=== PATIENT | male | born 1940 | race Caucasian/White ===

== ENCOUNTER 2018-08-23 18:08 | Inpatient (IN) | payer MEDICARE, OTHER ==
[~2018-08-23] VITALS: Ht 177.8 cm; Wt 104.3 kg
--- OUTSIDE RECORDS SUMMARY | 2018-08-23 18:11 | XMS REPORT ---
Author Author [facility] Address Unknown Phone Unavailable Care Team Providers Care Public Policy Mediator Name Role Phone Unavailable Unavailable Payers Payer Name Policy Type Policy Number Effective Date Expiration Date Problems This patient has no known problems. Allergies, Adverse Reactions, Alerts Allergy Name Allergy Type Status Severity Reaction(s) Onset Date Inactive Date Treating Clinician Comments No Known Allergies DA Active U 2018-06-25 00:00:00 No Allergy Information Available DA Active U 2018-06-24 00:00:00 No Allergy Information Available DA Active U 2015-11-03 00:00:00 Medications This patient has no known medications. Results Test Description Test Time Test Comments Text Results Atomic Results Result Comments GLUBED 2018-06-27 13:27:00 GLUBED (test code=GLUBED) 189 mg/dL 74-106 Performed by certified dx board operator at [facility] [id number] 06:29:00* Test Item Value Reference Range Comments GLUBED (test code=GLUBED) 177 mg/dL 74-106 Performed by certified dx board operator at [facility] BASIC METABOLIC [id number] 05:42:00* Test Item Value Reference Range Comments SODIUM (test code=NA) 138 mmol/L 136-145 POTASSIUM (test code=K) 4.0 mmol/L 3.5-5.1 CHLORIDE (test code=CL) 108.0 mmol/L 98-107 CARBON DIOXIDE (test code=CO2) 22.0 mmol/L 21-32 ANION GAP (test code=GAP) 12.0 10-20 GLUCOSE (test code=GLU) 161 mg/dL 74-106 BLOOD UREA NITROGEN (test code=BUN) 20 mg/dL 7-18 GLOMERULAR FILTRATION RATE (test code=GFR) 49 mL/min >=60 Estimated GFR by using Modified MDRD formula.Chronic kidney disease is defined as either kidney damageor GFR <60 mL/min/1.73 m2 for >3 months. CREATININE (test code=CREAT) 1.40 mg/dL 0.7-1.3 BUN/CREATININE RATIO (test code=BUN/CREA) 14.3 10-20 CALCIUM (test code=CA) 9.1 mg/dL 8.5-10.1 CBC W/AUTO [id number] 05:16:00* Test Item Value Reference Range Comments WHITE BLOOD CELL (test code=WBC) 10.9 K/mm3 4.5-12.5 RED BLOOD CELL (test code=RBC) 4.16 mill/mm3 4.0-5.8 HEMOGLOBIN (test code=HGB) 12.4 gram/dL 13.0-17.5 HEMATOCRIT (test code=HCT) 37.4 % 42.0-52.0 MEAN CELL VOLUME (test code=MCV) 89.9 fL 80-98 MEAN CELL HGB (test code=MCH) 29.8 picogram 27.0-33.0 MEAN CELL HGB CONCETRATION (test code=MCHC) 33.2 gram/dL 33.0-36.0 RED CELL DISTRIBUTION WIDTH (test code=RDW) 13.1 % 11.6-16.2 RED CELL DISTRIBUTION WIDTH SD (test code=RDW-SD) 43.2 fL 37.0-51.0 PLATELET COUNT (test code=PLT) 299 K/mm3 150-450 MEAN PLATELET VOLUME (test code=MPV) 10.5 fL 6.7-11.0 NEUTROPHIL % (test code=NT%) 58.3 % 39.0-69.0 IMMATURE GRANULOCYTE % (test code=IG%) 0.4 % 0.0-5.0 LYMPHOCYTE % (test code=LY%) 25.5 % 25.0-55.0 MONOCYTE % (test code=MO%) 9.9 % 0.0-10.0 EOSINOPHIL % (test code=EO%) 5.4 % 0.0-5.0 BASOPHIL % (test code=BA%) 0.5 % 0.0-1.0 NUCLEATED RBC % (test code=NRBC%) 0.0 % 0-0 NEUTROPHIL # (test code=NT#) 6.38 K/mm3 1.8-7.7 IMMATURE GRANULOCYTE # (test code=IG#) 0.04 x10 3/uL 0-0.03 LYMPHOCYTE # (test code=LY#) 2.79 K/mm3 1.0-5.0 MONOCYTE # (test code=MO#) 1.08 K/mm3 0-0.8 EOSINOPHIL # (test code=EO#) 0.59 K/mm3 0.0-0.5 BASOPHIL # (test code=BA#) 0.05 K/mm3 0.0-0.2 NUCLEATED RBC # (test code=NRBC#) 0.00 K/mm3 0.0-0.1 MANUAL DIFF REQUIRED (test code=MDIFF) NO [id number] 20:25:00* Test Item Value Reference Range Comments GLUBED (test code=GLUBED) 201 mg/dL 74-106 Performed by certified dx board operator at [facility] [id number] 15:56:00* Test Item Value Reference Range Comments GLUBED (test code=GLUBED) 197 mg/dL 74-106 Performed by certified dx board operator at [facility] - XR CHEST 1 [id number] 11:50:00 FAX: Aissatou Foote MD [phone] [place]: B St: ADM Name: NATALIYA POTTER [facility] : [birth year] Age/S: 78/M [address] [facility] #: [id number] Loc: 4 [place] [address] Phys: Aissatou Cross MD Acct: [id number] Dis Date: Status: ADM IN PHONE #: [phone] Exam Date: 06/26/2018 1147 FAX #: [phone] Reason: pacer EXAMS: CPT CODE: [id number] XR CHEST 1 V 59887 HISTORY: Pacemaker placement. COMPARISON: June 25, 2018. No acute infiltrates, effusion or congestion is noted. Left ICD is new with the leads in the right atrium and right ventricle. No pneumothorax. Cardiomegaly. IMPRESSION: Left ICD with the leads in the right atr ium and right ventricle without pneumothorax. No acute infiltrates, effusion or congestion. at 1150 Reported and signed b y: Buzz Suero M.D. CC: Aissatou Cross MD Technologist: BRIANDA RUBI, RT(R) Trnscrd Date/Time/By: 06/26/2018 (8872) : By: [email or web address] Orig Print D/T: S: 06/26/2018 (9985) PAGE 1 Signed Report [id number] 11:46:00 * Test Item Value Reference Range Comments GLUBED (test code=GLUBED) 143 mg/dL 74-106 Performed by certified dx board operator at [facility] BASIC METABOLIC [id number] 08:07:00* Test Item Value Reference Range Comments SODIUM (test code=NA) 140 mmol/L 136-145 POTASSIUM (test code=K) 4.1 mmol/L 3.5-5.1 CHLORIDE (test code=CL) 111.0 mmol/L 98-107 CARBON DIOXIDE (test code=CO2) 22.0 mmol/L 21-32 ANION GAP (test code=GAP) 11.1 10-20 GLUCOSE (test code=GLU) 139 mg/dL 74-106 BLOOD UREA NITROGEN (test code=BUN) 24 mg/dL 7-18 GLOMERULAR FILTRATION RATE (test code=GFR) 45 mL/min >=60 Estimated GFR by using Modified MDRD formula.Chronic kidney disease is defined as either kidney damageor GFR <60 mL/min/1.73 m2 for >3 months. CREATININE (test code=CREAT) 1.50 mg/dL 0.7-1.3 BUN/CREATININE RATIO (test code=BUN/CREA) 16.0 10-20 CALCIUM (test code=CA) 9.0 mg/dL 8.5-10.1 SERUM [id number] 08:07:00* Test Item Value Reference Range Comments SERUM IRON (test code=IRON) 59 ug/dL 50-175 VITAMIN [id number] 08:07:00* Test Item Value Reference Range Comments VITAMIN B12 (test code=VITB12) 622 pg/mL 193-986 FOLIC [id number] 08:07:00* Test Item Value Reference Range Comments FOLIC ACID (test code=FOL) 41.3 ng/mL 3.10-17.50 BASIC METABOLIC [id number] 07:35:00* Test Item Value Reference Range Comments SODIUM (test code=NA) 140 mmol/L 136-145 POTASSIUM (test code=K) 4.1 mmol/L 3.5-5.1 CHLORIDE (test code=CL) 111.0 mmol/L 98-107 CARBON DIOXIDE (test code=CO2) 22.0 mmol/L 21-32 ANION GAP (test code=GAP) 11.1 10-20 GLUCOSE (test code=GLU) 139 mg/dL 74-106 BLOOD UREA NITROGEN (test code=BUN) 24 mg/dL 7-18 GLOMERULAR FILTRATION RATE (test code=GFR) 45 mL/min >=60 Estimated GFR by using Modified MDRD formula.Chronic kidney disease is defined as either kidney damageor GFR <60 mL/min/1.73 m2 for >3 months. CREATININE (test code=CREAT) 1.50 mg/dL 0.7-1.3 BUN/CREATININE RATIO (test code=BUN/CREA) 16.0 10-20 CALCIUM (test code=CA) 9.0 mg/dL 8.5-10.1 SERUM [id number] 07:35:00* Test Item Value Reference Range Comments SERUM IRON (test code=IRON) 59 ug/dL 50-175 VITAMIN [id number] 07:35:00* Test Item Value Reference Range Comments VITAMIN B12 (test code=VITB12) pg/mL 193-986 FOLIC [id number] 07:35:00* Test Item Value Reference Range Comments FOLIC ACID (test code=FOL) 41.3 ng/mL 3.10-17.50 CBC W/AUTO [id number] 06:37:00* Test Item Value Reference Range Comments WHITE BLOOD CELL (test code=WBC) 11.4 K/mm3 4.5-12.5 RED BLOOD CELL (test code=RBC) 4.14 mill/mm3 4.0-5.8 HEMOGLOBIN (test code=HGB) 12.2 gram/dL 13.0-17.5 HEMATOCRIT (test code=HCT) 37.7 % 42.0-52.0 MEAN CELL VOLUME (test code=MCV) 91.1 fL 80-98 MEAN CELL HGB (test code=MCH) 29.5 picogram 27.0-33.0 MEAN CELL HGB CONCETRATION (test code=MCHC) 32.4 gram/dL 33.0-36.0 RED CELL DISTRIBUTION WIDTH (test code=RDW) 13.3 % 11.6-16.2 RED CELL DISTRIBUTION WIDTH SD (test code=RDW-SD) 44.1 fL 37.0-51.0 PLATELET COUNT (test code=PLT) 313 K/mm3 150-450 MEAN PLATELET VOLUME (test code=MPV) 10.9 fL 6.7-11.0 NEUTROPHIL % (test code=NT%) 45.7 % 39.0-69.0 IMMATURE GRANULOCYTE % (test code=IG%) 0.5 % 0.0-5.0 LYMPHOCYTE % (test code=LY%) 35.1 % 25.0-55.0 MONOCYTE % (test code=MO%) 10.8 % 0.0-10.0 EOSINOPHIL % (test code=EO%) 7.4 % 0.0-5.0 BASOPHIL % (test code=BA%) 0.5 % 0.0-1.0 NUCLEATED RBC % (test code=NRBC%) 0.0 % 0-0 NEUTROPHIL # (test code=NT#) 5.21 K/mm3 1.8-7.7 IMMATURE GRANULOCYTE # (test code=IG#) 0.06 x10 3/uL 0-0.03 LYMPHOCYTE # (test code=LY#) 4.00 K/mm3 1.0-5.0 MONOCYTE # (test code=MO#) 1.23 K/mm3 0-0.8 EOSINOPHIL # (test code=EO#) 0.84 K/mm3 0.0-0.5 BASOPHIL # (test code=BA#) 0.06 K/mm3 0.0-0.2 NUCLEATED RBC # (test code=NRBC#) 0.00 K/mm3 0.0-0.1 MANUAL DIFF REQUIRED (test code=MDIFF) NO RETICULOCYTE [id number] 06:37:00* Test Item Value Reference Range Comments RETICULOCYTE COUNT (test code=RETICT) 2.1 % 0.5-2.0 RETIC COUNT ABSOLUTE (test code=RET#) 0.089 mill/mm3 0.016-0.095 IMMATURE RETICULOCYTE FRACTION (test code=IRF) 11.4 % 2.3-13.4 Values above normal range indicate an increase in RBCcellular response from bone marrow. RETICULOCYTE HGB EQUIVALENT (test code=RETHE) 34.9 pg 28.2-35.7 RET-He is a direct estimate of recent functionalavailability of iron in the cell, therefore, decreasedRET-He is indicative of iron deficiency. BASIC METABOLIC [id number] 06:36:00* Test Item Value Reference Range Comments SODIUM (test code=NA) 140 mmol/L 136-145 POTASSIUM (test code=K) 4.1 mmol/L 3.5-5.1 CHLORIDE (test code=CL) 111.0 mmol/L 98-107 CARBON DIOXIDE (test code=CO2) mmol/L 21-32 ANION GAP (test code=GAP) 10-20 GLUCOSE (test code=GLU) mg/dL 74-106 BLOOD UREA NITROGEN (test code=BUN) mg/dL 7-18 GLOMERULAR FILTRATION RATE (test code=GFR) mL/min >=60 CREATININE (test code=CREAT) mg/dL 0.7-1.3 BUN/CREATININE RATIO (test code=BUN/CREA) 10-20 CALCIUM (test code=CA) mg/dL 8.5-10.1 SERUM [id number] 06:36:00* Test Item Value Reference Range Comments SERUM IRON (test code=IRON) ug/dL 50-175 VITAMIN [id number] 06:36:00* Test Item Value Reference Range Comments VITAMIN B12 (test code=VITB12) pg/mL 193-986 FOLIC [id number] 06:36:00* Test Item Value Reference Range Comments FOLIC ACID (test code=FOL) ng/mL 3.10-17.50 [id number] 05:35:00* Test Item Value Reference Range Comments GLUBED (test code=GLUBED) 144 mg/dL 74-106 Performed by certified dx board operator at [facility] [id number] 20:45:00* Test Item Value Reference Range Comments GLUBED (test code=GLUBED) 150 mg/dL 74-106 Performed by certified dx board operator at [facility] [id number] 15:48:00* Test Item Value Reference Range Comments GLUBED (test code=GLUBED) 156 mg/dL 74-106 Performed by certified dx board operator at [facility] [id number] 12:03:00* Test Item Value Reference Range Comments GLUBED (test code=GLUBED) 100 mg/dL 74-106 Performed by certified dx board operator at [facility] - XR CHEST 1 [id number] 09:41:00 FAX: Aissatou Foote MD [phone] [place]: St: ADM Name: NATALIYA POTTER [facility] : [birth year] Age/S: 78/M [address] [facility] Unit #: [id number] Loc: V.[address] [place] [address] Phys: Aissatou Cross MD Acct: [id number] Dis Date: Status: ADM IN PHONE #: [phone] Exam Date: 06/25/2018826 FAX #: [phone] Reason: COUGH/CHEST DISCOMFORT EXAMS: CPT CODE: [id number] XR CHEST 1 V 64372 HISTORY: Cough and chest discomfort. COMPARISON: None available. No acute infiltrates, effusion or congestion is noted. Cardiomegaly. I MPRESSION: No acute infiltrates, effusion or congestion. at 0941 Reported and signed by: Buzz Suero M.D. CC: Aissatou Cross MD Technologist: Nakita Carias RT(R); PARVEZ SHANNON JR Trnscrd Date/Time/By: 0 06/25/2018 (0956) : By: [email or web address] Orig Print D/T: S: 06/25/2018 (3593) PAGE 1 Signed Report T3 [id number] 06:48:00* Test Item Value Reference Range Comments T3 UPTAKE (test code=T3UP) 39.0 % 30.0-40.0 DID YOU ORDER T3UP AND T4 ? NOT4 (THYROXINE)2018-06-25 06:48:00* Test Item Value Reference Range Comments T4 (THYROXINE) (test code=T4) 9.9 ug/dL 4.5-13.9 DID YOU ORDER T3UP AND T4 ? NOT7 (FREE THYROXINE INDEX)2018-06-25 06:48:00* Test Item Value Reference Range Comments T7 (FREE THYROXINE INDEX) (test code=T7) 3.86 FTI 1.3-5.1 DID YOU ORDER T3UP AND T4 ? NOTHYROID STIMULATING [id number] 06:48:00* Test Item Value Reference Range Comments THYROID STIMULATING HORMONE (test code=TSH) 1.120 uIU/mL 0.36-3.74 TSH REFERENCE RANGES: EUTHYROID: 0.35 - 4.3 mIU/mL HYPO : > 5.5 mIU/mL HYPER : < 0.35 mIU/mL DID YOU ORDER T3UP AND T4 ? NOCPK-MB [id number] 06:35:00* Test Item Value Reference Range Comments CREATINE KINASE (CK) (test code=CK) 111 IUnit/L 26-208 CKMB (test code=CKMBT) 1.8 ng/mL 0-6.0 RELATIVE % INDEX (test code=REL%) 1.62 % 0.00-2.50 "If the total CK is elevated, the CKMB Fraction must beinterpreted as a Relative % Index, Normal is less than 2.5%"NOTE: Relative % Index is not valid with a normal total CK. SPECIMEN COMMENTS: [id number] 05:38:00* Test Item Value Reference Range Comments GLUBED (test code=GLUBED) 91 mg/dL 74-106 Performed by certified dx board operator at [facility] CBC W/AUTO [id number] 00:38:00* Test Item Value Reference Range Comments WHITE BLOOD CELL (test code=WBC) 13.5 K/mm3 4.5-12.5 RED BLOOD CELL (test code=RBC) 4.09 mill/mm3 4.0-5.8 HEMOGLOBIN (test code=HGB) 12.1 gram/dL 13.0-17.5 HEMATOCRIT (test code=HCT) 38.0 % 42.0-52.0 MEAN CELL VOLUME (test code=MCV) 92.9 fL 80-98 MEAN CELL HGB (test code=MCH) 29.6 picogram 27.0-33.0 MEAN CELL HGB CONCETRATION (test code=MCHC) 31.8 gram/dL 33.0-36.0 RED CELL DISTRIBUTION WIDTH (test code=RDW) 13.2 % 11.6-16.2 RED CELL DISTRIBUTION WIDTH SD (test code=RDW-SD) 45.0 fL 37.0-51.0 PLATELET COUNT (test code=PLT) 338 K/mm3 150-450 MEAN PLATELET VOLUME (test code=MPV) 10.7 fL 6.7-11.0 NEUTROPHIL % (test code=NT%) 45.1 % 39.0-69.0 IMMATURE GRANULOCYTE % (test code=IG%) 0.4 % 0.0-5.0 LYMPHOCYTE % (test code=LY%) 38.4 % 25.0-55.0 MONOCYTE % (test code=MO%) 9.5 % 0.0-10.0 EOSINOPHIL % (test code=EO%) 5.9 % 0.0-5.0 BASOPHIL % (test code=BA%) 0.7 % 0.0-1.0 NUCLEATED RBC % (test code=NRBC%) 0.0 % 0-0 NEUTROPHIL # (test code=NT#) 6.08 K/mm3 1.8-7.7 IMMATURE GRANULOCYTE # (test code=IG#) 0.05 x10 3/uL 0-0.03 LYMPHOCYTE # (test code=LY#) 5.18 K/mm3 1.0-5.0 MONOCYTE # (test code=MO#) 1.28 K/mm3 0-0.8 EOSINOPHIL # (test code=EO#) 0.80 K/mm3 0.0-0.5 BASOPHIL # (test code=BA#) 0.09 K/mm3 0.0-0.2 NUCLEATED RBC # (test code=NRBC#) 0.00 K/mm3 0.0-0.1 MANUAL DIFF REQUIRED (test code=MDIFF) NO BASIC METABOLIC [id number] 00:32:00* Test Item Value Reference Range Comments SODIUM (test code=NA) 141 mmol/L 136-145 POTASSIUM (test code=K) 4.4 mmol/L 3.5-5.1 CHLORIDE (test code=CL) 111.0 mmol/L 98-107 CARBON DIOXIDE (test code=CO2) 24.0 mmol/L 21-32 ANION GAP (test code=GAP) 10.4 10-20 GLUCOSE (test code=GLU) 75 mg/dL 74-106 BLOOD UREA NITROGEN (test code=BUN) 33 mg/dL 7-18 GLOMERULAR FILTRATION RATE (test code=GFR) 37 mL/min >=60 Estimated GFR by using Modified MDRD formula.Chronic kidney disease is defined as either kidney damageor GFR <60 mL/min/1.73 m2 for >3 months. CREATININE (test code=CREAT) 1.80 mg/dL 0.7-1.3 BUN/CREATININE RATIO (test code=BUN/CREA) 18.3 10-20 CALCIUM (test code=CA) 9.0 mg/dL 8.5-10.1 BASIC METABOLIC [id number] 00:29:00* Test Item Value Reference Range Comments SODIUM (test code=NA) 141 mmol/L 136-145 POTASSIUM (test code=K) 4.4 mmol/L 3.5-5.1 CHLORIDE (test code=CL) 111.0 mmol/L 98-107 CARBON DIOXIDE (test code=CO2) mmol/L 21-32 ANION GAP (test code=GAP) 10-20 GLUCOSE (test code=GLU) mg/dL 74-106 BLOOD UREA NITROGEN (test code=BUN) mg/dL 7-18 GLOMERULAR FILTRATION RATE (test code=GFR) mL/min >=60 CREATININE (test code=CREAT) mg/dL 0.7-1.3 BUN/CREATININE RATIO (test code=BUN/CREA) 10-20 CALCIUM (test code=CA) mg/dL 8.5-10.1 PROTHROMBIN [id number] 00:24:00* Test Item Value Reference Range Comments PROTHROMBIN TIME PATIENT (test code=PTP) 12.3 seconds 9.0-14.0 INTERNATIONAL NORMAL RATIO (test code=INR) 1.1 0.8-1.2 The therapeutic range for oral anticoagulant therapy formost indications is an international normalized ratio (INR)of between 2.0 and 3.0. The recommended therapeutic INRrange for various clinical situations is listed below: Clinical Situation INR range Pulmonary e mbolism treatment (2.0-3.0)Venous thrombosis treatmentVenous thrombosis prophylaxis (high risk surgery)Prevention of systemic embolism from: Acute myocardial infarction Valvular heart disease Atrial fibrillation Mechanical prosthetic heart valves (2.5-3.5) IS PATIENT ON ANTICOAGULANTS? NTHROMBOPLASTIN TIME [id number] 00:24:00* Test Item Value Reference Range Comments THROMBOPLASTIN TIME PARTIAL (test code=PTT) 32.2 seconds 25.0-36.5 IS PATIENT ON ANTICOAGULANTS? [id number] 21:23:00* Test Item Value Reference Range Comments GLUBED (test code=GLUBED) 113 mg/dL 74-106 Performed by certified dx board operator at [facility]
[2018-08-23] MEDS ORDERED: ASPIRIN 81 MG CHEW TAB ONE (18:28)
[2018-08-23] MEDS ORDERED: NITROGLYCERIN 2% OINT 1 GM PKT ONE (18:28)
[2018-08-23] MEDS ORDERED: LIDOCAINE VISC 2% SOLN 15 ML UDC ONE (18:29)
[2018-08-23] MEDS ORDERED: MORPHINE SULFATE INJ 4 MG/ML INJ 1ML ONE (18:29)
[2018-08-23] MEDS ORDERED: MAGNESIUM/ALUMINUM/SIMETHICONE 30 ML UDC ONE (18:30)
[2018-08-23] MEDS ORDERED: NITROGLYCERIN 2% OINT 1 GM PKT TOP ONE (18:30)
[2018-08-23] MEDS ORDERED: ASPIRIN 81 MG CHEW TAB PO ONE ×2 (19:00→19:30)
[2018-08-23] MEDS ORDERED: ONDANSETRON HCL INJ 2MG/ML 2ML 2 MG/ML VIAL IV ONE (19:00)
[2018-08-23] MEDS ORDERED: MORPHINE SULFATE INJ 4 MG/ML INJ 1ML IV ONE (19:00)
--- NOTE | 2018-08-23 19:03 | NUR ---
Report to JULIANNA Moreno
--- NOTE | 2018-08-23 19:05 | Diagnostic Imaging Report ---
EXAMINATION: CXR 2 VIEW - HOPD INDICATION: Chest pain ^[id number] ^1842 COMPARISON: None FINDINGS: PA and lateral views TUBES and LINES: Dual-lead left chest wall cardiac device in place with distal tips overlying right atrium and right ventricle. LUNGS: Low lung volumes. Mild central vascular congestion. There is no evidence of pneumonia or pulmonary edema. PLEURA: No significant pleural effusion or pneumothorax. HEART AND MEDIASTINUM: The cardiomediastinal silhouette is mildly prominent, accentuated by low lung volumes. BONES AND SOFT TISSUES: No acute osseous lesion. Soft tissues are unremarkable. UPPER ABDOMEN: No free air under the diaphragm. IMPRESSION: Mildly prominent cardiac silhouette and central vascular congestion, accentuated by low lung volumes. No focal consolidation. Signed by: Dr. Gera Forte MD on 08/23/2018 7:01 PM
[2018-08-23] MEDS ORDERED: DONNATAL/LIDOCAINE/MAALOX 30 ML SUSP PO ONE (19:30)
[2018-08-23] MEDS ORDERED: ONDANSETRON HCL INJ 2MG/ML 2ML 2 MG/ML VIAL IV PRN ×2 (19:30→21:30)
[2018-08-23] MEDS ORDERED: MORPHINE SULFATE INJ 4 MG/ML INJ 1ML IV PRN ×2 (19:30→21:30)
[2018-08-23] MEDS ORDERED: SODIUM CHLORIDE FLUSH 10 ML SYR INJ PRN ×2 (19:30→21:30)
[2018-08-23] MEDS ORDERED: DEXTROSE 50% SYRINGE 50 ML IV PRN ×2 (19:30→21:30)
[2018-08-23] MEDS ORDERED: FAMOTIDINE 20 MG/2 ML VIAL IV SCH (20:00)
[2018-08-23] MEDS ORDERED: AMLODIPINE BESYL5 MG PO (20:25)
[2018-08-23] MEDS ORDERED: B-121000 MCG PO (20:25)
[2018-08-23] MEDS ORDERED: GLIMEPIRIDE2 MG PO (20:25)
[2018-08-23] MEDS ORDERED: NOVOLOG MI100 UNIT/1 SQ ×2 (20:25)
[2018-08-23] MEDS ORDERED: AVALIDE 300-121 EACH PO (20:25)
[2018-08-23] MEDS ORDERED: METOPROLOL SUCC50 MG PO (20:25)
[2018-08-23] MEDS ORDERED: METFORMIN HCL500 M2 PO (20:25)
[2018-08-23] MEDS ORDERED: ATORVASTATIN CA40 MG PO (20:25)
[2018-08-23] MEDS ORDERED: REVATIO20 MG PO (20:25)
[2018-08-23 20:42] VITALS: BP 153/74
--- NOTE | 2018-08-23 20:42 | NUR ---
PT ARRIVED BY EMS AND STRETCHER TO ROOM 114. PT IS AAOX3, RR SHALLOW PT REPORTS HIS CHEST HURTS MORE WHEN HE TAKES DEEP BREATHES. PT ALSO REPORTS THAT THE PAIN IS BETTER THAN IT WAS WHEN HE [facility]. PTS FAMILY IS AT BEDSIDE. ORIENTED PT TO HOSPITAL ROOM, CALL LIGHT, PHONE, BED CONTROLS AND LIGHTS. LEFT PT LAYING SEMI FOWLERS IN BED, BED IN LOW LOCKED POSITION, SIDE RAILS UPX2, CALL LIGHT AND PHONE WITHIN REACH.
[2018-08-23] MEDS ORDERED: INSULIN REGULAR, HUMAN 100 UNIT/1 ML 3ML VIAL SQ SCH (21:00)
[2018-08-23] MEDS ORDERED: INSULIN REGULAR, HUMAN 100 UNIT/1 ML 3ML VIAL ONE (21:28)
[2018-08-23 21:30] VITALS: BP 153/74
[2018-08-23] MEDS: FAMOTIDINE 20 MG/2 ML VIAL IV SCH (21:32)
[2018-08-23] MEDS: INSULIN REGULAR, HUMAN 100 UNIT/1 ML 3ML VIAL SQ SCH (21:32)
--- NOTE | 2018-08-23 21:59 | NUR ---
SPOKE WITH MD KHAN CONCERNING ADMINISTRATION OF MORPHINE WITH MINIMAL PAIN RELIEF. NEW ORDERS RECEIVED TO RENEW HOME MEDICATIONS AND INCREASE MORPHINE DOSE AND RATE.
[2018-08-23] MEDS ORDERED: VITAMIN D32000 UNIT PO (22:13)
[2018-08-23] MEDS ORDERED: MULTIVITAMINS1 EAC7 PO (22:13)
[2018-08-23] MEDS: NITROGLYCERIN 2% OINT 1 GM PKT TOP SCH (23:29)
[2018-08-23] MEDS: MORPHINE SULFATE INJ 4 MG/ML INJ 1ML IV PRN (23:32)
[2018-08-24] VITALS (8 sets, daily range): BP systolic 105–141; BP diastolic 52–73
[2018-08-24] MEDS ORDERED: NITROGLYCERIN 2% OINT 1 GM PKT TOP SCH
[2018-08-24] MEDS: MORPHINE SULFATE INJ 4 MG/ML INJ 1ML IV PRN ×6 (01:32→19:36)
[2018-08-24 03:24] LABS: BASOPHILS # (AUTO) 0.1 (0.0-0.1); BASOPHILS % 0.3 % (0.0-1.0); EOSINOPHILS % 0.2 % (0.0-6.0); HEMATOCRIT 37.2 % (38.2-49.6); HEMOGLOBIN 12.5 g/dL (14.0-18.0); LYMPHOCYTES # (AUTO) 1.3 (1.0-3.2); LYMPHOCYTES % 6.5 % (18.0-39.1); MEAN CORPUSCULAR HEMOGLOBIN 29.8 pg (28-32); MEAN CORPUSCULAR HGB CONC 33.6 g/dL (31-35); MEAN CORPUSCULAR VOLUME 88.6 fL (81-99); MONOCYTES # (AUTO) 1.7 (0.2-0.8); MONOCYTES % 8.6 % (4.4-11.3); NEUTROPHILS # (AUTO) 16.6 (2.1-6.9); NEUTROPHILS % 83.8 % (38.7-80.0); PLATELET COUNT 282 x10e3/uL (140-360); RED CELL DISTRIBUTION WIDTH 13.4 % (11.7-14.4)
[2018-08-24 03:42] LABS: CREATINE KINASE 79 IU/L (30-200)
[2018-08-24 04:11] LABS: ALBUMIN 3.6 g/dL (3.5-5.0); ALBUMIN/GLOBULIN RATIO 1.1 (0.8-2.0); ANION GAP 15.3 mmol/L (8-16); CALCIUM 9.4 mg/dL (8.4-10.2); CHOL/HDL RATIO 2.8 (3.9-4.7); CREATININE, SERUM 1.51 mg/dL (0.72-1.25); POTASSIUM 5.3 mmol/L (3.5-5.1)
[2018-08-24 05:46] LABS: LYMPHOCYTES % (MANUAL) 8 % (19-48); MONOCYTES % (MANUAL) 9 % (3.4-9.0); NEUTROPHILS % (MANUAL) 82 % (40-74); PLATELET ESTIMATE ADEQUATE; PLATELET MORPHOLOGY COMMENT FEW LARGE
[2018-08-24 05:47] LABS: RBC MORPHOLOGY COMMENT NORMAL
[2018-08-24] MEDS: NITROGLYCERIN 2% OINT 1 GM PKT TOP SCH ×3 (06:00→15:55)
[2018-08-24] MEDS: INSULIN REGULAR, HUMAN 100 UNIT/1 ML 3ML VIAL SQ SCH ×4 (07:30→20:27)
[2018-08-24] MEDS: INSULIN ASPART 70/30 100 UNITS/ML VIAL SC SCH ×2 (07:30→16:42)
[2018-08-24] MEDS: GLIMEPIRIDE 2 MG TAB PO SCH ×2 (08:17→16:42)
[2018-08-24] MEDS: HYDROCHLOROTHIAZIDE 25 MG TAB PO SCH (08:18)
[2018-08-24] MEDS: AMLODIPINE BESYLATE 5 MG TAB PO SCH (08:18)
[2018-08-24] MEDS: METFORMIN HCL 500 MG TAB CR PO SCH ×2 (08:18→16:42)
[2018-08-24] MEDS: MULTIVITAMINS/MINERALS TAB PO SCH (08:18)
[2018-08-24] MEDS: METOPROLOL SUCCINATE 50 MG TAB XL PO SCH ×2 (08:18→15:56)
[2018-08-24] MEDS: FAMOTIDINE 20 MG/2 ML VIAL IV SCH ×2 (08:18→20:39)
[2018-08-24] MEDS: CHOLECALCIFEROL 1,000 UNIT TAB PO SCH (08:24)
[2018-08-24] MEDS: CYANOCOBALAMIN 1,000 MCG TAB PO SCH (08:24)
[2018-08-24] MEDS ORDERED: IRBESARTAN 150 MG TAB PO SCH (09:00)
[2018-08-24] MEDS ORDERED: ACETAMINOPHEN 325 MG TAB PO PRN (11:15)
[2018-08-24 11:26] LABS: CREATINE KINASE 72 IU/L (30-200)
--- NOTE | 2018-08-24 11:32 | NUR ---
NOTIFIED MD OF LAB WORK (WBC) WHEN ROUNDING MD ORDERED LABS FOR TOMORROW MORNING
--- NOTE | 2018-08-24 11:40 | NUR ---
NOTIFIED MD KHAN ABOUT HIGH POTASSIUM LEVEL. STATES THERE IS LAB WORK ORDERS FOR TOMORROW . NO ORDERS RECEIVED
[2018-08-24] MEDS ORDERED: METHYLPREDNISOLONE SOD SUCC 125 MG/2ML VIAL IV ONE (12:00)
[2018-08-24] MEDS: IRBESARTAN 150 MG TAB PO SCH (13:28)
[2018-08-24] MEDS: ATORVASTATIN 40 MG TAB PO SCH (20:39)
[2018-08-25] VITALS (8 sets, daily range): BP systolic 126–176; BP diastolic 62–78
[2018-08-25] MEDS: NITROGLYCERIN 2% OINT 1 GM PKT TOP SCH ×4 (05:57→17:10)
[2018-08-25 06:36] LABS: BASOPHILS % 0.1 % (0.0-1.0); EOSINOPHILS # (AUTO) 0.1 (0.0-0.4); EOSINOPHILS % 0.3 % (0.0-6.0); HEMATOCRIT 34.1 % (38.2-49.6); HEMOGLOBIN 11.4 g/dL (14.0-18.0); LYMPHOCYTES # (AUTO) 1.3 (1.0-3.2); LYMPHOCYTES % 6.3 % (18.0-39.1); MEAN CORPUSCULAR HEMOGLOBIN 29.9 pg (28-32); MEAN CORPUSCULAR HGB CONC 33.4 g/dL (31-35); MEAN CORPUSCULAR VOLUME 89.5 fL (81-99); MONOCYTES # (AUTO) 1.4 (0.2-0.8); NEUTROPHILS # (AUTO) 17.2 (2.1-6.9); NEUTROPHILS % 85.5 % (38.7-80.0); PLATELET COUNT 254 x10e3/uL (140-360); RED BLOOD COUNT 3.81 x10e6/uL (4.3-5.7)
[2018-08-25 06:45] LABS: ANION GAP 17.1 mmol/L (8-16); CALCIUM 9.4 mg/dL (8.4-10.2); POTASSIUM 5.1 mmol/L (3.5-5.1)
[2018-08-25 06:48] LABS: CREATININE, SERUM 2.44 mg/dL (0.72-1.25)
[2018-08-25] MEDS: INSULIN REGULAR, HUMAN 100 UNIT/1 ML 3ML VIAL SQ SCH ×4 (07:30→21:12)
[2018-08-25] MEDS: GLIMEPIRIDE 2 MG TAB PO SCH ×2 (07:30→17:08)
[2018-08-25] MEDS: INSULIN ASPART 70/30 100 UNITS/ML VIAL SC SCH ×2 (07:30→17:09)
[2018-08-25] MEDS: METFORMIN HCL 500 MG TAB CR PO SCH (08:00)
[2018-08-25] MEDS ORDERED: ONDANSETRON HCL 4 MG ORAL DISINTEGRATING TAB PO PRN (08:30)
[2018-08-25] MEDS: METOPROLOL SUCCINATE 50 MG TAB XL PO SCH ×2 (09:00→17:10)
[2018-08-25] MEDS: FAMOTIDINE 20 MG/2 ML VIAL IV SCH ×2 (09:15→21:08)
--- NOTE | 2018-08-25 09:20 | NUR ---
PT OFF UNIT FOR STRESS TEST
[2018-08-25] MEDS ORDERED: REGADENOSON 0.4 MG/5 ML SYR IV ONE (10:05)
--- NOTE | 2018-08-25 10:50 | NUR ---
SPOKE TO MD KHAN ABOUT TODAY WBC AND CREATININE INCREASE ASKED FOR AN US OF ABD AND CX WITH RENAL SPECIALIST
[2018-08-25] MEDS ORDERED: PREDNISONE 20 MG TAB PO ONE ×2 (11:00→13:00)
--- NOTE | 2018-08-25 12:19 | Diagnostic Imaging Report ---
EXAM: US ABDOMEN COMPLETE DATE: 08/25/2018 12:00 AM INDICATION: Abdominal pain COMPARISON: None TECHNIQUE: Transverse and longitudinal pineda scale and color doppler sonographic images of the upper abdomen were obtained. FINDINGS: There is no evidence of fluid or masses seen in the area of clinical concern in the right lower quadrant. LIVER 16.4 cm in the right midclavicular line. Normal echogenicity of the liver with normal contour, no masses. SPLEEN 10.4 cm in maximum diameter. Normal echogenicity, no masses. GALLBLADDER No gallbladder wall thickening (0.3 cm), distension, stone, or pericholecystic fluid. Negative reported sonographic Guan's sign. BILE DUCTS No intra nor extra-hepatic biliary dilation. Common bile duct measures 0.3cm PANCREAS: Visualized portions are normal. RIGHT KIDNEY: 10.1 cm Echogenicity: Normal Collecting System: No hydronephrosis Stones: None Cyst/Mass: None LEFT KIDNEY: 10.2 cm Echogenicity: Normal Collecting System: No hydronephrosis Stones: None Cyst/Mass: None VESSELS: Aorta: Visualized portions are within normal size limits Inferior Vena Cava: Visualized portions are normal Main Portal Vein: 0.7 cm, normal size with hepatopetal flow. FREE FLUID: None IMPRESSION: Unremarkable abdominal ultrasound. Signed by: Billy Boles MD on 08/25/2018 12:16 PM
[2018-08-25] MEDS: CHOLECALCIFEROL 1,000 UNIT TAB PO SCH (13:00)
[2018-08-25] MEDS: IRBESARTAN 150 MG TAB PO SCH (13:00)
[2018-08-25] MEDS: HYDROCHLOROTHIAZIDE 25 MG TAB PO SCH (13:00)
[2018-08-25] MEDS: CYANOCOBALAMIN 1,000 MCG TAB PO SCH (13:00)
[2018-08-25] MEDS: MULTIVITAMINS/MINERALS TAB PO SCH (13:00)
[2018-08-25] MEDS: AMLODIPINE BESYLATE 5 MG TAB PO SCH (13:00)
--- NOTE | 2018-08-25 15:46 | NUR ---
DISCUSSED IN ROUNDS, ELEVATED WBC, CONSULT FOR JAMES PENDING STRESS TEST RESULTS.
[2018-08-25] MEDS: SODIUM CHLORIDE 0.9% 1000ML 1,000 ML IV SCH (16:10)
[2018-08-25 17:10] LABS: CREATININE,URINE RANDOM 48.95 mg/dL (63-166)
[2018-08-25] MEDS: SODIUM BICARBONATE 650 MG TAB PO SCH (17:10)
[2018-08-25 17:11] LABS: TOTAL PROTEIN, URINE < 6.8 mg/dL (1-14)
[2018-08-25 17:51] LABS: BILIRUBIN,URINE NEGATIVE (NEGATIVE); CLARITY,URINE CLEAR (CLEAR); COLOR,URINE YELLOW (YELLOW); KETONES,URINE NEGATIVE (NEGATIVE); LEUKOCYTE ESTERASE ,URINE NEGATIVE (NEGATIVE); NITRITE,URINE NEGATIVE (NEGATIVE); PROTEIN,URINE DIPSTICK NEGATIVE (NEGATIVE); URINE UROBILINOGEN 0.2 mg/dL (0.2 - 1)
[2018-08-25] MEDS: ATORVASTATIN 40 MG TAB PO SCH (21:08)
--- NOTE | 2018-08-25 21:39 | Consultation ---
DATE OF CONSULTATION: 08/25/2018 HISTORY OF PRESENT ILLNESS: A 78-year-old white gentleman, who has underlying history of hypertension for the last 40 years, diabetes type 2 since the last nine years that he know of, follows up with Dr. Clayton, who developed bradycardia recently. Subsequently underwent pacemaker placement. Developed chest pains yesterday, which did not go away by taking Zantac, so he subsequently presented to the hospital, was subsequently admitted, real concerned because of abnormal kidney function. The patient is awake, alert, sitting up, in no apparent distress. Denies any chest pain, shortness of breath, nausea, vomiting, headache, abdominal pain, dysuria. He denies prior history of any renal insufficiency or kidney stone disease. Denies history of prostate problems, CVA, malignancy, or OR. He has not been eating or drinking well last 2 or 3 days. No episodes of diarrhea though. Denies any trouble passing urine. Laboratory test shows sodium 131, potassium 5.1, bicarbonate 19, creatinine 2.44. White count 20.1 with 83% neutrophils, 8% lymphocytes, no bands. SOCIAL HISTORY: Does not smoke or drink. . 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 The by bedside. CURRENT MEDICATIONS: He is on Tylenol p.r.n., amlodipine 5 mg daily, atorvastatin 40 mg at bedtime, vitamin D3 2000 units p.o. daily, vitamin B12, Pepcid injection, glimepiride/Amaryl 4 mg p.o. b.i.d. He is on hydrochlorothiazide. He is on insulin, irbesartan, metformin, metoprolol 50 mg p.o. b.i.d., morphine p.r.n., multivitamin, ondansetron p.r.n., received one time dose of prednisone. ALLERGIES: HE IS ALLERGIC TO [place]. LABORATORY DATA: He underwent a stress for morning. He had an abdominal ultrasound done, please see official report, shows right kidney 10.1 cm, left kidney 10.2 cm, normal echogenicity. Gallbladder, no wall thickening. Liver 16.4 cm. No evidence of fluid or masses. Chest x-ray, please see official report, it was expiratory film, possible cardiomegaly. PHYSICAL EXAMINATION: GENERAL: Awake, alert, sitting up, in no apparent distress. VITAL SIGNS: Blood pressure of 132/67, pulse rate 84, afebrile, respiratory rate 17. HEAD AND NECK: Cornea clear. Mucosa dry. Neck veins flat. LUNGS: Bilaterally clear. HEART: S1, S2 audible. ABDOMEN: Otherwise soft, nontender. EXTREMITIES: Lower extremity examination shows no edema. IMPRESSION AND PLAN: Type 4 renal tubular acidosis, acute on chronic kidney failure, appears clinically dehydrated, hyponatremic as well. Etiology most likely thiazide diuretics. Acute kidney injury, admitted with chest pain status post stress test today. Elevated white count with predominant neutrophilia, etiology unclear. The patient denies any fevers or chills. Plan on discontinuing metformin, discontinuing HCTZ and irbesartan. I will start IV fluids, start p.o. bicarbonate. We will order urinalysis, spot urine protein creatinine ratio. Await echocardiogram. Start sodium bicarbonate tablets. Etiology of type 4 renal tubular acidosis is underlying diabetic nephropathy. Mild hyperkalemia, we place on renal diet. Further recommendations to follow. MD MARILYN Swanson/GITA /[id number]
[2018-08-26] VITALS (7 sets, daily range): BP systolic 132–154; BP diastolic 63–76
[2018-08-26] MEDS: NITROGLYCERIN 2% OINT 1 GM PKT TOP SCH ×4 (00:04→18:32)
[2018-08-26] MEDS: SODIUM CHLORIDE 0.9% 1000ML 1,000 ML IV SCH ×2 (01:48→13:24)
[2018-08-26 06:34] LABS: ALBUMIN 2.8 g/dL (3.5-5.0); ALBUMIN/GLOBULIN RATIO 0.8 (0.8-2.0); ANION GAP 12.9 mmol/L (8-16); CALCIUM 9.1 mg/dL (8.4-10.2); CREATININE, SERUM 1.87 mg/dL (0.72-1.25); POTASSIUM 4.9 mmol/L (3.5-5.1)
--- NOTE | 2018-08-26 07:14 | NUR ---
PT ASLEEP RESP EVEN AND UNLABORED NO RESP DISTRESS NOTED, PT EASILY AROUSED, AND ABLE TO MAKE NEEDS, KNOWN, CALL LIGHT IN REACH NO C/O PAIN WHEN ASKED.
[2018-08-26] MEDS: FAMOTIDINE 20 MG/2 ML VIAL IV SCH ×2 (08:54→20:52)
[2018-08-26] MEDS: METOPROLOL SUCCINATE 50 MG TAB XL PO SCH ×2 (08:54→17:00)
[2018-08-26] MEDS: CYANOCOBALAMIN 1,000 MCG TAB PO SCH (08:54)
[2018-08-26] MEDS: AMLODIPINE BESYLATE 5 MG TAB PO SCH (08:54)
[2018-08-26] MEDS: SODIUM BICARBONATE 650 MG TAB PO SCH ×2 (08:54→16:59)
[2018-08-26] MEDS: CHOLECALCIFEROL 1,000 UNIT TAB PO SCH (08:54)
[2018-08-26] MEDS: GLIMEPIRIDE 2 MG TAB PO SCH ×2 (08:54→16:59)
[2018-08-26] MEDS: MULTIVITAMINS/MINERALS TAB PO SCH (08:54)
[2018-08-26] MEDS: INSULIN REGULAR, HUMAN 100 UNIT/1 ML 3ML VIAL SQ SCH ×4 (10:07→20:50)
[2018-08-26] MEDS: INSULIN ASPART 70/30 100 UNITS/ML VIAL SC SCH ×2 (10:08→16:48)
--- NOTE | 2018-08-26 15:39 | Myoview Stress Test ---
DATE OF STUDY: 08/25/2018 00:00:00 Stress Test - Treadmill ONLY The patient had resting perfusion images after injection of 10.8 mCi of technetium-99m Myoview. Later due to inability to exercise, he is given Lexiscan 0.4 mg intravenously and shortly afterwards 33 mCi of technetium-99m Myoview. Perfusion images were taken by rotational tomography. Comparison of resting and Lexiscan stress images show no significant evidence of any perfusion defect. Additionally, gated wall motion images were obtained. Calculated ejection fraction is normal at 66% with mild septal hypokinesis possibly due to pacemaker. FINAL IMPRESSION: 1. Normal Lexiscan Myoview for perfusion. 2. Abnormal left ventricular function with mild septal hypokinesis and calculated ejection fraction of 66%, possibly due to a pacemaker. MD LEOBARDO Joe/JOSSEL /[id number] cc: MD Darrel Swanson MD
--- NOTE | 2018-08-26 19:07 | NUR ---
WALKING ROUNDS PERFORMED, RECEIVED PT SITTING IN CHAIR, AAOX3, RR EVEN AND NON-LABORED, ON ROOM AIR. NO S/SX OF DISTRESS NOTED. LEFT PT SITTING IN CHAIR, CALL LIGHT AND PHONE WITHIN REACH.
--- NOTE | 2018-08-26 19:10 | NUR ---
report given to oncoming nurse for continued care. pt stable.
[2018-08-26] MEDS: ATORVASTATIN 40 MG TAB PO SCH (20:52)
[2018-08-27] VITALS: BP 152/78
[2018-08-27] MEDS: SODIUM CHLORIDE 0.9% 1000ML 1,000 ML IV SCH ×2 (00:04→10:06)
[2018-08-27] MEDS: NITROGLYCERIN 2% OINT 1 GM PKT TOP SCH ×2 (00:17→05:42)
[2018-08-27 04:00] VITALS: BP 127/69
[2018-08-27 06:21] LABS: ALBUMIN 2.7 g/dL (3.5-5.0); ALBUMIN/GLOBULIN RATIO 0.8 (0.8-2.0); ANION GAP 11.3 mmol/L (8-16); CALCIUM 8.8 mg/dL (8.4-10.2); CREATININE, SERUM 1.55 mg/dL (0.72-1.25); POTASSIUM 4.3 mmol/L (3.5-5.1)
--- NOTE | 2018-08-27 07:11 | NUR ---
pt alert watching TV, sitting at bedside, no distress noted, pt able to make needs known, no c/o pain when asked, call light in place.
--- NOTE | 2018-08-27 07:12 | NUR ---
BEDSIDE SHIFT REPORT PERFORMED WITH ONCOMING NURSE.
[2018-08-27] MEDS: INSULIN REGULAR, HUMAN 100 UNIT/1 ML 3ML VIAL SQ SCH (07:30)
[2018-08-27 08:00] VITALS: BP 144/76
[2018-08-27 09:23] VITALS: BP 144/76
[2018-08-27] MEDS: MULTIVITAMINS/MINERALS TAB PO SCH (10:06)
[2018-08-27] MEDS: GLIMEPIRIDE 2 MG TAB PO SCH (10:06)
[2018-08-27] MEDS: CYANOCOBALAMIN 1,000 MCG TAB PO SCH (10:06)
[2018-08-27] MEDS: CHOLECALCIFEROL 1,000 UNIT TAB PO SCH (10:06)
[2018-08-27] MEDS: SODIUM BICARBONATE 650 MG TAB PO SCH (10:06)
[2018-08-27] MEDS: AMLODIPINE BESYLATE 5 MG TAB PO SCH (10:06)
[2018-08-27] MEDS: FAMOTIDINE 20 MG/2 ML VIAL IV SCH (10:06)
[2018-08-27] MEDS: METOPROLOL SUCCINATE 50 MG TAB XL PO SCH (10:07)
[2018-08-27] MEDS: INSULIN ASPART 70/30 100 UNITS/ML VIAL SC SCH (10:08)
[2018-08-27 10:40] LABS: BASOPHILS % 0.2 % (0.0-1.0); EOSINOPHILS # (AUTO) 0.5 (0.0-0.4); EOSINOPHILS % 3.9 % (0.0-6.0); HEMATOCRIT 35.5 % (38.2-49.6); HEMOGLOBIN 11.7 g/dL (14.0-18.0); LYMPHOCYTES # (AUTO) 3.5 (1.0-3.2); LYMPHOCYTES % 28.8 % (18.0-39.1); MEAN CORPUSCULAR HEMOGLOBIN 29.8 pg (28-32); MEAN CORPUSCULAR VOLUME 90.3 fL (81-99); MONOCYTES # (AUTO) 1.6 (0.2-0.8); MONOCYTES % 13.5 % (4.4-11.3); NEUTROPHILS # (AUTO) 6.5 (2.1-6.9); NEUTROPHILS % 53.1 % (38.7-80.0); PLATELET COUNT 305 x10e3/uL (140-360); RED BLOOD COUNT 3.93 x10e6/uL (4.3-5.7); RED CELL DISTRIBUTION WIDTH 14.2 % (11.7-14.4)
[2018-08-27 12:00] VITALS: BP 152/77
[2018-08-27 12:32] LABS: EOSINOPHILS % (MANUAL) 2 % (0-7); LYMPHOCYTES % (MANUAL) 29 % (19-48); MONOCYTES % (MANUAL) 16 % (3.4-9.0); NEUTROPHILS % (MANUAL) 53 % (40-74); PLATELET ESTIMATE ADEQUATE; PLATELET MORPHOLOGY COMMENT NORMAL; RBC MORPHOLOGY COMMENT NORMAL
--- NOTE | 2018-08-27 13:36 | Discharge Summary ---
Mr. 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 HOSPITAL COURSE: The patient's initial evaluation suggested pleuritic or musculoskeletal pain as right side of his chest hurt with movement and breathing. Initial laboratory studies were relatively unrevealing. He was given a dose of Solu-Medrol 125 mg IV push and echocardiogram was obtained, which showed normal LV function and no problem with recent pacemaker. On the , the patient had a Lexiscan Myoview, which showed normal perfusion and normal left ventricular function. However, his creatinine had gone up to 2.4 unexpectedly and developed leukocytosis. Urinalysis was unremarkable. He was seen by Dr. Lou, who stopped his metformin and irbesartan. He was gently hydrated and given bicarbonate. His renal function some improved with BUN 51, creatinine 1.8 by the and on today, the , his BUN was 38 and creatinine 1.5. His white cell count improved to 12.1. He is currently pain free. He is discharged home today, to stop his metformin and irbesartan and instructed to follow up with Dr. Alvino Clayton, Dr. Sole Lou, and Dr. Carrsaco for Endocrinology. DISCHARGE DIAGNOSES: 1. Pleural or musculoskeletal pain. 2. Acute renal insufficiency. 3. Hypertension. 4. Type 2 adult-onset diabetes. 5. Leukocytosis. MD LEOBARDO Joe/MODL /[id number] cc: MD Alvino Cisneros MD
--- NOTE | 2018-08-27 13:45 | NUR ---
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
== END 2018-08-27 13:45 | disposition home or self-care (01) | DRG 683 ==
LOC: FSED 18:08 → ERHOLD 19:27 → UNDOADMOB 19:27 → ERHOLD 19:38 → MED/SURG 20:42
PROVIDERS: ADMIT Internal Medicine Cardiovascular Disease; ATTEND Internal Medicine Cardiovascular Disease
DX: N17.9 Acute kidney failure, unspecified (principal); E87.1 Hypo-osmolality and hyponatremia; R07.81 Pleurodynia; R07.89 Other chest pain; I12.9 Hypertensive chronic kidney disease with stage 1 through stage 4 chronic kidney disease, or unspecified chronic kidney disease; E11.21 Type 2 diabetes mellitus with diabetic nephropathy; N18.9 Chronic kidney disease, unspecified; E78.00 Pure hypercholesterolemia, unspecified; Z95.0 Presence of cardiac pacemaker; Z91.018 Allergy to other foods; N25.89 Other disorders resulting from impaired renal tubular function; E86.0 Dehydration; Z79.4 Long term (current) use of insulin; E11.22 Type 2 diabetes mellitus with diabetic chronic kidney disease; D72.829 Elevated white blood cell count, unspecified
CPT/HCPCS: 36415; 71046; 76700; 78452; 80048; 80053; 80061; 81001; 82550; 82553; 82570; 82948; 83880; 84156; 84484; 84550; 85025; 85379; 87086; 93005; 93017; 93306; 96372; 96374; 96375; 99284; A9502; J1815; J1817; J2270; J2405; J2930; J7030; J7512

== ENCOUNTER → 2019-06-18 | Outpatient (CLI) | payer MEDICARE, OTHER ==
[~2019-06-18] MED LIST: AMLODIPINE BESYL5 MG PO; ATORVASTATIN CA40 MG PO; AVALIDE 300-121 EACH PO; B-121000 MCG PO; GLIMEPIRIDE2 MG PO; METFORMIN HCL500 M2 PO; METOPROLOL SUCC50 MG PO; MULTIVITAMINS1 EAC7 PO; NOVOLOG MI100 UNIT/1 SQ; REVATIO20 MG PO; VITAMIN D32000 UNIT PO
--- NOTE | 2019-06-18 14:21 | Diagnostic Imaging Report ---
EXAMINATION: Head CT HISTORY: Double vision, sixth nerve palsy, evaluate for acute stroke COMPARISON: None. TECHNIQUE: Helical axial images of the head were obtained. Reformatted coronal and sagittal images from the axial data. Dose modulation, iterative reconstruction, and/or weight based adjustment of the mA/kV was utilized to reduce the radiation dose to as low as reasonably achievable. Image quality: Motion/streaking artifact limits the evaluation of the skull base and posterior cranial fossa. FINDINGS: Parenchyma: 1. Scattered and moderate confluent periventricular white matter hypodensities, most likely nonspecific chronic microvascular ischemic changes. Age indeterminate likely chronic lacunar infarcts in the bilateral putamen and left caudate nuclei. 2. No mass or hemorrhage. No CT evidence of acute territorial vascular insult. Extra-axial spaces:No abnormal density. No extra-axial fluid collections Brain volume: Normal for age. Ventricles: No hydrocephalus or displacement. Arteries: Portable CT of the vertebral basilar vessels likely from atherosclerosis.. Dural sinuses: No abnormal density. Foramen magnum: No mass, Chiari malformation, or basilar invagination. Sella: No obvious mass. Paranasal/mastoid sinuses: Imaged portions unremarkable. Skull/Scalp: No lytic or blastic lesions. No fractures. IMPRESSION: 1. No acute intraparenchymal hemorrhage or cortical infarcts. 2. Mildly matter chronic microvascular ischemic changes. 3. 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 Signed by: Dr. Shena Paiz M.D. on 06/18/2019 2:18 PM
--- NOTE | 2019-06-18 14:27 | Diagnostic Imaging Report ---
Examination: Orbit CT without contrast CLINICAL HISTORY: Double vision, sixth nerve palsy, evaluate for acute stroke COMPARISON: Head CT performed on the same date TECHNIQUE: The orbits were scanned utilizing a multidetector helical scanner from the skull base to the vertex. Multiplanar sagittal and coronal reconstructions were performed as well. Dose modulation, iterative reconstruction, and/or weight based adjustment of the mA/kV was utilized to reduce the radiation dose to as low as reasonably achievable. FINDINGS: Globes: The right lens is not visualized, likely from prior cataract surgery. Otherwise normal bilaterally Optic nerves: Normal size. No enhancement. Orbital fat: Normal. Extraocular muscles: Normal. Preseptal soft tissues: Normal. Lacrimal glands: Normal. Sella turcica: No enlargement. Cavernous sinuses: Minimal prominence of the right cavernous sinus, likely due to ICA ectasia from atherosclerosis, overall evaluation is limited due to the lack of intravenous contrast. Paranasal sinuses: Hyperpneumatization of the lateral recess of the right greater than left sphenoid sinuses as a variation of the anatomy. Otherwise clear bilaterally. Superior ophthalmic veins: No enlargement. IMPRESSION: No discrete orbits abnormalities to explain the patient's symptoms in this unenhanced study. Signed by: Dr. Shena Paiz M.D. on 06/18/2019 2:24 PM
== END ==
LOC: CT 12:13
PROVIDERS: ATTEND Ophthalmology
DX: H49.22 Sixth [abducent] nerve palsy, left eye (principal)
CPT/HCPCS: 70450; 70480

== ENCOUNTER 2022-07-02 15:44 | Emergency (ER) | payer MEDICARE, OTHER ==
[~2022-07-02] VITALS: Ht 177.8 cm; Wt 108.7 kg
[~2022-07-02 15:44] MED LIST changes: +PREDNISONE20 MG PO
[2022-07-02] MEDS ORDERED: LIDOCAINE HCL 2% LOCAL 20 ML VIAL ONE (16:04)
[2022-07-02] MEDS ORDERED: TETANUS/DIPHTHERIA TOX ADULT 0.5 ML SYR ONE (16:06)
[2022-07-02] MEDS ORDERED: TETANUS/DIPHTHERIA TOX ADULT 0.5 ML SYR IM STA (16:12)
[2022-07-02] MEDS ORDERED: LIDOCAINE HCL 2% LOCAL 20 ML VIAL INJ STA (16:12)
[2022-07-02] MEDS ORDERED: MUPIROCIN 2% OINT 22 GM TUBE TOP ONE (16:15)
[2022-07-02 17:00] VITALS: O2SAT 96
[2022-07-02] MEDS ORDERED: GABAPENTIN300 MG PO (18:37)
[2022-07-02] MEDS ORDERED: IRBESARTAN-HCT1 EAC1 (18:37)
[2022-07-02] MEDS ORDERED: FLOMAX0.4 MG PO (18:37)
[2022-07-02] MEDS ORDERED: NOVOLIN 70100 UNIT/3 SQ (18:37)
[2022-07-02] MEDS ORDERED: ASPIRIN EC81 MG PO (18:37)
== END 2022-07-02 17:00 | disposition home or self-care (01) ==
LOC: FSED 15:50
DX: S61.215A Laceration without foreign body of left ring finger without damage to nail, initial encounter (principal); W29.3XXA Contact with powered garden and outdoor hand tools and machinery, initial encounter; Y93.89 Activity, other specified; Y92.89 Other specified places as the place of occurrence of the external cause; I10 Essential (primary) hypertension; E11.9 Type 2 diabetes mellitus without complications; E78.5 Hyperlipidemia, unspecified; Z95.810 Presence of automatic (implantable) cardiac defibrillator
CPT/HCPCS: 12001; 90471; 90714; 96372; 99283; J2001